=== PATIENT | female | born 1995 ===

== ENCOUNTER 2016-10-29 20:29 | Emergency (ER) | payer BC, OTHER ==
[2016-10-29 20:35] VITALS: BP 118/70; BMI 23.8
[2016-10-29 22:00] LABS: BILIRUBIN,URINE NEGATIVE (NEGATIVE); BLOOD/HEMOGLOBIN,URINE NEGATIVE (NEGATIVE); GLUCOSE, URINE NEGATIVE (NEGATIVE); KETONES,URINE NEGATIVE (NEGATIVE); LEUKOCYTE ESTERASE ,URINE NEGATIVE (NEGATIVE); NITRITES,URINE NEGATIVE (NEGATIVE); PROTEIN,URINE NEGATIVE (NEGATIVE); UROBILINOGEN,URINE NORMAL (NORMAL)
[2016-10-29 22:06] LABS: APPEARANCE,URINE CLEAR (CLEAR); BACTERIA,URINE 1+ /HPF (NEGATIVE); COLOR,URINE YELLOW (YELLOW); RBC,URINE NONE SEEN /HPF (NEGATIVE); SQUAMOUS EPITHELIAL CELL,UR RARE /HPF (NEGATIVE)
== END 2016-10-29 22:40 | disposition left against medical advice (07) ==
LOC: ER 20:51
DX: M54.89 Other dorsalgia (principal); Z3A.00 Weeks of gestation of pregnancy not specified
CPT/HCPCS: 36415; 81001; 84702; 99284

== ENCOUNTER 2020-07-29 02:43 | Observation (INO) ==
[2020-07-29 03:11] VITALS: BMI 24.1
[2020-07-29] MEDS ORDERED: NS 1000 ML 1,000 ML IV ONE ×2 (03:13→05:35)
[2020-07-29] MEDS ORDERED: ZOFRAN INJ 4 MG VIAL IVP ONE (03:13)
[2020-07-29] MEDS ORDERED: PEPCID 20 MG IV PREMIX* 20 MG/50 ML BAG IV STA (03:13)
[2020-07-29] MEDS ORDERED: MORPHINE SULFATE INJ 4 MG IVP ONE (03:18)
--- NOTE | 2020-07-29 03:28 | DR.GENAD ---
HPI Time Seen Time Seen by Provider: 07/29/20 03:10 PCP Primary Care Physician: zeina elam HPI Comment HPI Comment: PATIENT WITH A HISTORY OF CLEAR CELL SARCOMA DIAGNOSED IN 2012 COMPLAINS OF GENERALIZED ABDOMINAL PAIN X 1 WEEK. HAS AN EPISODE OF EMESIS AND HAS PERSISTENT NAUSEA, DENIES URINARY SYMPTOMS, DIARRHEA, FEVER. PATIENT IS SCHEDULED TO UNDERGO EXPERIMENTAL CHEMOTHERAPY AT [facility] IN [place]. Complaint/Symptoms Chief Complaint Doctors Comments: ABDOMINAL PAIN Chief Complaint:: PT STATED SHE HAS BEEN HAVING ABDOMINAL PAIN FOR ABOUT A WEEK THAT HAS WORSEN. SHE STATED TONIGHT SHE STARTED FEELING NAUSEATED. Self Treatment fo Chief Complaint: PT STATED SHE HAS BEEN TAKING TYLENOL Source History Provided: Patient Mode of Arrival Mode of Arrival: EMS Timing Onset of Chief Complaint: 07/29/20 PMH PMH Past Medical History: Yes Past Medical History Comment: CLEAR CELL SARCOMA Past Surgical History: Yes Surgical History: Past Surgical History Comment: AND RIGHT BELOW THE KNEE AMBUTATION Family History History of Family Medical Conditions: No Social History Alcohol Use: None Do you use any recreational Drugs:: No Lives With: Family Lives Where: Home Infectious screening In the last 2 months have you had wt loss of >10#?: NO Have you had fever, night sweats or hemotysis?: No Have you traveled outside the country in the last 6 months?: No Isolation: Standard ROS Review of Systems Constitutional: No Symptoms Reported Eyes: No Symptoms Reported ENTM: No Symptoms Reported Respiratoy: No Symptoms Reported Cardiovascular: No Symptoms Reported Gastrointestinal/Abdominal: No Symptoms Reported, See HPI, Nausea and Vomiting Genitourinary: No Symptoms Reported Neurological: See HPI and Headache Musculoskeletal: No Symptoms Reported Integumentary: No Symptoms Reported Hematologic/Lymphatic: No Symptoms Reported Endocrine: No Symptoms Reported Psychiatric: No Symptoms Reported All Other Systems: Reviewed and Negative PE Vital Signs Vitals: Temperature 99.4 F Pulse Rate [Left Brachial] 111 Pulse Rate 142 Respiratory Rate 20 Blood Pressure [Left Arm] 119/58 Blood Pressure 117/70 O2 Sat by Pulse Oximetry 98 General Limitations: No Limitations General Appearance: Alert and In No Apparent Distress Head Head Exam: Atraumatic Eyes Eye exam: Normal Appearance and PERRL ENT ENT Exam: Normal Exam and Normal Oropharynx External Ear Exam: Normal External Inspection Neck Neck Exam: Normal Inspection and Full ROM Respiratory Respiratory Exam: Normal Lung Sounds Bilat Cardiovascular Cardiovascular Exam: Regular Rate and Normal Rhythm Back Back Exam: Normal Inspection and Full ROM Neurologic Neurological Exam: Alert and Oriented X3 MDM Additional Information Findings: HGB-9.1, HCT-26.2 Differential Diagnosis Differential Diagnosis: ACUTE PANCREATITIS, INTERNAL HEMORRHAGE COURSE Treatment Treatment: ADMINISTERED IV NORMAL SALINE 1 LITER/HR, ZOFRAN 4MG, MORPHINE 4MG IV AND PEPCID 20MG IVPB, PATIENT TYPES AND CROSSED FOR 4 UNITS OF PRBC. PATIENT IS BEING TRANSFUSED 2 UNITS PACKED RED BLOOD CELLS, 1 UNIT OVER 1 HOUR EACH WITH BLOOD WARMER, WILL OBTAIN CBC AFTER 2ND UNIT TRANSFUSED, VITAL SIGNS BP 123/70 HAS REMAINED STABLE, TACHYCARDIA 136 IMPROVED TO PULSE 101 AFTER TRANSFUSION OF 1 UNIT PRBC Consultation Call Returned: 05:30 Consultation Comments: DISCUSSED WITH DR MARIEE AT [address] SCAN FINDINGS, PER FAMILY REQUEST CONSULTED [facility], VASCULAR SURGEON CAR DISTRI[employer]OR DR BENJAMIN AT 0545 STATES HAS NO BED AVAILABLE. AFTER CONSULTATION PER DR MARIEE, WILL ADMIT AND TRANSFUSE 2 UNITS AND FOLLOW SERIAL CBC. ROR Labs Reviewed Result Diagrams: 07/29/20 03:30 07/29/20 03:30 Laboratory: WBC 12.7 X10^3/uL (3.6-10.0) H 07/29/20 03:30 RBC 3.08 X10^6/uL (3.5-5.4) L 07/29/20 03:30 Hgb 9.1 g/dL (12.0-16.0) L 07/29/20 03:30 Hct 26.2 % (36.0-47.0) L 07/29/20 03:30 MCV 85.2 fL (80.0-100.0) 07/29/20 03:30 MCH 29.7 pg (27.0-34.0) 07/29/20 03:30 MCHC 34.8 g/dL (33.0-35.0) 07/29/20 03:30 RDW 12.2 % (11.6-16.5) 07/29/20 03:30 Plt Count 207 X10^3/uL (150.0-450.0) 07/29/20 03:30 MPV 8.9 fL (7.4-11.0) 07/29/20 03:30 Neut % (Auto) 84.4 % (42.0-75.0) H 07/29/20 03:30 Lymph % (Auto) 9.4 % (21.0-51.0) L 07/29/20 03:30 [place]man % (Auto) 5.6 % (0.0-13.0) 07/29/20 03:30 Eos % (Auto) 0.3 % (0.9-2.9) L 07/29/20 03:30 Baso % (Auto) 0.3 % (0.2-1.0) 07/29/20 03:30 Neut # (Auto) 10.7 x10^3/uL (2.2-4.8) H 07/29/20 03:30 Lymph # (Auto) 1.2 X10^3/uL (1.3-2.9) L 07/29/20 03:30 [place]man # (Auto) 0.7 x10^3/uL (0.3-0.8) 07/29/20 03:30 Eos # (Auto) 0.0 x10^3/uL (0.0-0.2) 07/29/20 03:30 Baso # (Auto) 0.0 X10^3/uL (0.0-0.1) 07/29/20 03:30 Absolute Nucleated RBC 0.0 /100WBC 07/29/20 03:30 PT 15.0 SECONDS (11.8-14.3) 07/29/20 03:30 INR Target Range - 07/29/20 03:30 INR 1.21 (0.8-1.3) 07/29/20 03:30 Sodium 134 mmol/L (136-145) L 07/29/20 03:30 Corrected Sodium 135 mmol/L (136-145) L 07/29/20 03:30 Potassium 3.8 mmol/L (3.5-5.1) 07/29/20 03:30 Chloride 100 mmol/L (98-107) 07/29/20 03:30 Carbon Dioxide 27.9 mmol/L (21-32) 07/29/20 03:30 BUN 9 mg/dL (7-18) 07/29/20 03:30 Creatinine 0.79 mg/dL (0.55-1.02) 07/29/20 03:30 Est GFR (MDRD) Af Amer > 60 (>60) 07/29/20 03:30 Est GFR (MDRD) Non-Af > 60 (>60) 07/29/20 03:30 Glucose 122 mg/dL (65-99) H 07/29/20 03:30 Calcium 8.7 mg/dL (8.5-10.1) 07/29/20 03:30 Corrected Calcium 9.3 mg/dL (8.5-10.1) 07/29/20 03:30 Total Bilirubin 0.20 mg/dL (0.2-1.0) 07/29/20 03:30 AST 42 Units/L (15-37) H 07/29/20 03:30 ALT 34 Units/L (12-78) 07/29/20 03:30 Alkaline Phosphatase 103 Units/L (46-116) 07/29/20 03:30 Total Protein 7.1 g/dL (6.4-8.2) 07/29/20 03:30 Albumin 3.3 g/dL (3.4-5.0) L 07/29/20 03:30 Globulin 3.8 g/dL (2.5-4.5) 07/29/20 03:30 Albumin/Globulin Ratio 0.9 Ratio (1.1-2.1) L 07/29/20 03:30 Amylase 77 Units/L (25-115) 07/29/20 03:30 Lipase 1038 Units/L (73-393) H 07/29/20 03:30 HCG, Qual Negative <10 mIU/mL 07/29/20 03:30 SARS CoV-2 RNA Rapid MARC Negative (NEGATIVE) 07/29/20 06:24 Blood Type O POSITIVE 07/29/20 05:15 Antibody Screen Negative 07/29/20 05:15 Crossmatch See Detail 07/29/20 05:15 XRAY XRAY Interpreted by: Radiologist (ABDOMINAL PELVIC CT WITH IV CONTRAST, THERE IS A LARGE ACTIVE HEMMORRHAGE SEEN SURROUNDING THE RIGHT KIDNEY IN THE REGION OF THE RIGHT ADRENAL GLAND WITH EXTENSION TOWARD THE LOWER PERITONEUM AND INTO RIGHT PELVIS. THE FLUID IS HIGHLY WORRISOME FOR ACTIVE IN THE PERITONEAL CA VITY) Opioid Opioid Risk Tool Age (Titus box if 16-45): Yes History of Preadolescent Sexual Abuse: No Total: 1 Total Score Risk Category: Low Risk Copyright: Mehul REYES predicting aberrant behaviors Diagnosis Discharge Problem: Retroperitoneal bleeding Instructions Forms: Precautions for COVID19 Patient Portal Social Distancing
[2020-07-29] MEDS ORDERED: NS 1000 ML 1,000 ML ONE ×3 (03:32→06:39)
[2020-07-29] MEDS ORDERED: ZOFRAN INJ 4 MG VIAL ONE (03:32)
[2020-07-29] MEDS ORDERED: MORPHINE SULFATE INJ 4 MG ONE (03:32)
[2020-07-29] MEDS ORDERED: PEPCID 20 MG IV PREMIX* 20 MG/50 ML BAG IV ONE (03:33)
[2020-07-29 03:39] LABS: BASOPHILS % (AUTO) 0.3 % (0.2-1.0); EOSINOPHILS % (AUTO) 0.3 % (0.9-2.9); HEMATOCRIT 26.2 % (36.0-47.0); HEMOGLOBIN 9.1 g/dL (12.0-16.0); LYMPHOCYTES # (AUTO) 1.2 X10^3/uL (1.3-2.9); LYMPHOCYTES % (AUTO) 9.4 % (21.0-51.0); MEAN CORPUSCULAR HEMOGLOBIN 29.7 pg (27.0-34.0); MEAN CORPUSCULAR HGB CONC 34.8 g/dL (33.0-35.0); MEAN CORPUSCULAR VOLUME 85.2 fL (80.0-100.0); MEAN PLATELET VOLUME 8.9 fL (7.4-11.0); MONOCYTES # (AUTO) 0.7 x10^3/uL (0.3-0.8); MONOCYTES % (AUTO) 5.6 % (0.0-13.0); NEUTROPHILS # (AUTO) 10.7 x10^3/uL (2.2-4.8); NEUTROPHILS % (AUTO) 84.4 % (42.0-75.0); PLATELET COUNT 207 X10^3/uL (150.0-450.0); RED BLOOD COUNT 3.08 X10^6/uL (3.5-5.4); RED CELL DISTRIBUTION WIDTH 12.2 % (11.6-16.5); WHITE BLOOD COUNT 12.7 X10^3/uL (3.6-10.0)
[2020-07-29 03:55] LABS: SERUM PREGNANCY TEST, QUAL NEGATIVE <10 mIU/mL
[2020-07-29 04:00] LABS: ALANINE AMINOTRANSFERASE 34 Units/L (12-78); ALBUMIN 3.3 g/dL (3.4-5.0); ALKALINE PHOSPHATASE 103 Units/L (46-116); AMYLASE 77 Units/L (25-115); ASPARTATE AMINO TRANSFERASE 42 Units/L (15-37); BLOOD UREA NITROGEN 9 mg/dL (7-18); CALCIUM 8.7 mg/dL (8.5-10.1); CARBON DIOXIDE 27.9 mmol/L (21-32); CHLORIDE 100 mmol/L (98-107); COR CA(FOR HYPOALB) 9.3 mg/dL (8.5-10.1); COR NA(FOR HYPERGLY) 135 mmol/L (136-145); CREATININE 0.79 mg/dL (0.55-1.02); LIPASE 1038 Units/L (73-393); SODIUM 134 mmol/L (136-145); TOTAL PROTEIN 7.1 g/dL (6.4-8.2); eGFR NON BLACK RACES > 60 (>60)
[2020-07-29] MEDS ORDERED: NS 1000 ML 1,000 ML IV SCH (05:00)
--- NOTE | 2020-07-29 05:14 | CT ---
STUDY: CT ABDOMEN AND PELVIS WITH IV CONTRASTCOMPARISON: NoneTECHNIQUE: Axial images were acquired of the abdomen and pelvis with IV contrast. Sagittal and coronal reformatted images were provided. All images were reviewed in a variety of windows and levels.RADIATION REDUCTION TECHNIQUE: Automated exposure control, adjustment of the mA and/or kV according to patient size, or iterative reconstruction techniques were used.HISTORY: PT C/O ABD PAINFINDINGS:The visualized lower lung zones are clear. The heart size is within normal limits. There is no evidence of a pericardial effusion.The liver is unremarkable. The gallbladder, spleen is unremarkable. There are lesions seen in the body of the pancreas of which the largest measures 20 mm in diameter and has a heterogeneous septated internal architecture. The uncinate process and the pancreatic head is being shifted due to mass effect toward the gallbladder. Large active hemorrhage is seen surrounding the right kidney and in the region of the right adrenal gland with extension toward the lower peritoneum and into the pelvis. This fluid is highly worrisome for active hemorrhage in the peritoneal cavity and measures blood density.The left kidney contains a cyst. The left adrenal gland is unremarkable. Please note that the contrast seen in the kidneys and in the aorta is hyperdense which is worrisome for the possibility of hypovolemic shock. In addition, there is flattening of the IVC which is worrisome for hypovolemic shock.The uterus is grossly unremarkable. The left adnexal is grossly unremarkable. The right adnexal is not clearly visualized. Soft tissue enhancing mass is seen in the right gluteus muscle measuring 23 x 17 mm and along the left paraspinous muscle measuring 51 x 34 mm. This is worrisome for malignancy. The visualized portions of the colon appears unremarkable. Please note that the ascending colon is being displaced towards the mid abdomen due to the active hemorrhage in the peritoneal cavity. The loops of small bowel appear grossly unremarkable but are poorly discernible on this examination.The visualized bones demonstrate degenerative changes.IMPRESSION:- Large amount of fluid is seen in the right freida abdomen predominantly surrounding the right kidney and the right adrenal gland. The source of this hemorrhage is not clear but may be arising from the system or possibly retroperitoneal. The fluid does measure blood density and is highly worrisome for active hemorrhage. In addition, the IV contrast in the exam is very dense and the IVC is flattened. These CT imaging features are worrisome for hypovolemic shock.- There are soft tissue lesions seen within the pancreas, right gluteus muscle, and left paraspinous muscle. This is worrisome for metastatic disease.COMMUNICATIONS: These findings were discussed with Dr. Alberto of the [facility] emergency Department at 5:05 a.m. Eastern standard time on 07/29/2020.Electronically signed by: Angel Blackwood (Jul 29, 2020 05:12:45)
[2020-07-29] MEDS ORDERED: NS 250 ML IV 250 ML IV ONE (06:36)
[2020-07-29] MEDS ORDERED: MORPHINE SULFATE INJ 2 MG INJ IVP PRN (07:47)
[2020-07-29] MEDS ORDERED: DILAUDID INJ IVP PRN (10:53)
[2020-07-29] MEDS: ZOFRAN INJ 4 MG VIAL IVP PRN ×2 (12:04→18:43)
[2020-07-29 12:10] LABS: BASOPHILS % (AUTO) 0.4 % (0.2-1.0); EOSINOPHILS % (AUTO) 0.2 % (0.9-2.9); HEMATOCRIT 25.6 % (36.0-47.0); HEMOGLOBIN 8.8 g/dL (12.0-16.0); LYMPHOCYTES # (AUTO) 1.3 X10^3/uL (1.3-2.9); LYMPHOCYTES % (AUTO) 15.9 % (21.0-51.0); MEAN CORPUSCULAR HEMOGLOBIN 29.6 pg (27.0-34.0); MEAN CORPUSCULAR HGB CONC 34.5 g/dL (33.0-35.0); MEAN CORPUSCULAR VOLUME 85.9 fL (80.0-100.0); MONOCYTES # (AUTO) 0.6 x10^3/uL (0.3-0.8); MONOCYTES % (AUTO) 6.7 % (0.0-13.0); NEUTROPHILS # (AUTO) 6.4 x10^3/uL (2.2-4.8); NEUTROPHILS % (AUTO) 76.8 % (42.0-75.0); PLATELET COUNT 135 X10^3/uL (150.0-450.0); RED BLOOD COUNT 2.98 X10^6/uL (3.5-5.4); RED CELL DISTRIBUTION WIDTH 12.8 % (11.6-16.5); WHITE BLOOD COUNT 8.3 X10^3/uL (3.6-10.0)
[2020-07-29 14:24] LABS: BILIRUBIN,URINE NEGATIVE (NEGATIVE); BLOOD/HEMOGLOBIN,URINE NEGATIVE (NEGATIVE); GLUCOSE, URINE NEGATIVE (NEGATIVE); KETONES,URINE 3+ (NEGATIVE); LEUKOCYTE ESTERASE ,URINE NEGATIVE (NEGATIVE); NITRITES,URINE NEGATIVE (NEGATIVE); PROTEIN,URINE 1+ (NEGATIVE); UROBILINOGEN,URINE NORMAL (NORMAL)
[2020-07-29 14:34] LABS: APPEARANCE,URINE CLEAR (CLEAR); BACTERIA,URINE NEGATIVE /HPF (NEGATIVE); COLOR,URINE DARK YELLOW (YELLOW); MUCUS,URINE FEW /HPF (NEGATIVE); RBC,URINE 0-2 /HPF (0-3); SQUAMOUS EPITHELIAL CELL,UR RARE /HPF (NEGATIVE)
[2020-07-29] MEDS: DILAUDID INJ IVP PRN ×3 (15:19→23:45)
[2020-07-29 16:12] LABS: HEMATOCRIT 23.5 % (36.0-47.0); HEMOGLOBIN 8.2 g/dL (12.0-16.0)
[2020-07-30] MEDS: ZOFRAN INJ 4 MG VIAL IVP PRN ×2 (04:00→09:10)
[2020-07-30] MEDS: DILAUDID INJ IVP PRN ×3 (04:00→12:17)
[2020-07-30 07:38] LABS: BASOPHILS % (AUTO) 0.6 % (0.2-1.0); EOSINOPHILS # (AUTO) 0.1 x10^3/uL (0.0-0.2); HEMOGLOBIN 9.3 g/dL (12.0-16.0); LYMPHOCYTES # (AUTO) 1.3 X10^3/uL (1.3-2.9); LYMPHOCYTES % (AUTO) 18.5 % (21.0-51.0); MEAN CORPUSCULAR HEMOGLOBIN 30.3 pg (27.0-34.0); MEAN CORPUSCULAR HGB CONC 34.7 g/dL (33.0-35.0); MEAN CORPUSCULAR VOLUME 87.3 fL (80.0-100.0); MEAN PLATELET VOLUME 8.6 fL (7.4-11.0); MONOCYTES # (AUTO) 0.4 x10^3/uL (0.3-0.8); MONOCYTES % (AUTO) 5.8 % (0.0-13.0); NEUTROPHILS % (AUTO) 73.1 % (42.0-75.0); PLATELET COUNT 124 X10^3/uL (150.0-450.0); RED BLOOD COUNT 3.09 X10^6/uL (3.5-5.4); RED CELL DISTRIBUTION WIDTH 13.2 % (11.6-16.5); WHITE BLOOD COUNT 6.9 X10^3/uL (3.6-10.0)
[2020-07-30 07:47] LABS: ALANINE AMINOTRANSFERASE 18 Units/L (12-78); ALBUMIN 2.5 g/dL (3.4-5.0); ALKALINE PHOSPHATASE 100 Units/L (46-116); AMYLASE 52 Units/L (25-115); ASPARTATE AMINO TRANSFERASE 27 Units/L (15-37); BLOOD UREA NITROGEN 4 mg/dL (7-18); CALCIUM 8.1 mg/dL (8.5-10.1); CARBON DIOXIDE 24.7 mmol/L (21-32); CHLORIDE 104 mmol/L (98-107); COR CA(FOR HYPOALB) 9.3 mg/dL (8.5-10.1); CREATININE 0.58 mg/dL (0.55-1.02); LIPASE 605 Units/L (73-393); SODIUM 137 mmol/L (136-145); TOTAL PROTEIN 5.8 g/dL (6.4-8.2); eGFR NON BLACK RACES > 60 (>60)
--- NOTE | 2020-07-30 09:53 | DR.PROGNOT ---
Hospital Progress Notes - Progress Note for Day of: Progress Note Date: 07/30/20 - Chief Complaint Chief Complaint: c/o back and abdominal pain , mild nausea. WBC 6.9.. Hgb 9.3, plt 124.. Lipase 605. stable VS , afebrile - Past Medical Family Social History Past Med/Fam/Surg Hx: No changes since H&P Allergies: Allergies No Known Drug Allergies Allergy (Verified 04/06/20 01:42) - Review Of Systems ROS: No change since H&P - Vital Signs Vital Signs: Temperature 98.6 F Pulse Rate [Left Brachial] 92 Pulse Rate 142 Respiratory Rate 20 Blood Pressure [Left Arm] 117/65 Blood Pressure 117/70 O2 Sat by Pulse Oximetry 100 - Physical Exam Oriented: Normal Eyes: Normal Ear: Normal Nose: Normal Respiratory: Normal Cardiovascular: Normal : Normal GI:Auscultation: Normal GI:Palpation: Other (soft abdomen . flat BS+) Skin: Normal Speech Pattern: Clear, Appropriate - Laboratory and Diagnostics Result Diagrams: 07/30/20 07:24 07/30/20 07:24 Labs: Laboratory WBC 6.9 X10^3/uL (3.6-10.0) 07/30/20 07:24 RBC 3.09 X10^6/uL (3.5-5.4) L 07/30/20 07:24 Hgb 9.3 g/dL (12.0-16.0) L 07/30/20 07:24 Hct 27.0 % (36.0-47.0) L 07/30/20 07:24 MCV 87.3 fL (80.0-100.0) 07/30/20 07:24 MCH 30.3 pg (27.0-34.0) 07/30/20 07:24 MCHC 34.7 g/dL (33.0-35.0) 07/30/20 07:24 RDW 13.2 % (11.6-16.5) 07/30/20 07:24 Plt Count 124 X10^3/uL (150.0-450.0) L 07/30/20 07:24 MPV 8.6 fL (7.4-11.0) 07/30/20 07:24 Neut % (Auto) 73.1 % (42.0-75.0) 07/30/20 07:24 Lymph % (Auto) 18.5 % (21.0-51.0) L 07/30/20 07:24 [place] % (Auto) 5.8 % (0.0-13.0) 07/30/20 07:24 Eos % (Auto) 2.0 % (0.9-2.9) 07/30/20 07:24 Baso % (Auto) 0.6 % (0.2-1.0) 07/30/20 07:24 Neut # (Auto) 5.0 x10^3/uL (2.2-4.8) H 07/30/20 07:24 Lymph # (Auto) 1.3 X10^3/uL (1.3-2.9) 07/30/20 07:24 [place] # (Auto) 0.4 x10^3/uL (0.3-0.8) 07/30/20 07:24 Eos # (Auto) 0.1 x10^3/uL (0.0-0.2) 07/30/20 07:24 Baso # (Auto) 0.0 X10^3/uL (0.0-0.1) 07/30/20 07:24 Absolute Nucleated RBC 0.0 /100WBC 07/30/20 07:24 PT 15.0 SECONDS (11.8-14.3) 07/29/20 03:30 INR Target Range - 07/29/20 03:30 INR 1.21 (0.8-1.3) 07/29/20 03:30 Sodium 137 mmol/L (136-145) 07/30/20 07:24 Corrected Sodium TNP 07/30/20 07:24 Potassium 3.9 mmol/L (3.5-5.1) 07/30/20 07:24 Chloride 104 mmol/L (98-107) 07/30/20 07:24 Carbon Dioxide 24.7 mmol/L (21-32) 07/30/20 07:24 BUN 4 mg/dL (7-18) L 07/30/20 07:24 Creatinine 0.58 mg/dL (0.55-1.02) 07/30/20 07:24 Est GFR (MDRD) Af Amer > 60 (>60) 07/30/20 07:24 Est GFR (MDRD) Non-Af > 60 (>60) 07/30/20 07:24 Glucose 83 mg/dL (65-99) 07/30/20 07:24 Calcium 8.1 mg/dL (8.5-10.1) L 07/30/20 07:24 Corrected Calcium 9.3 mg/dL (8.5-10.1) 07/30/20 07:24 Total Bilirubin 1.20 mg/dL (0.2-1.0) H 07/30/20 07:24 AST 27 Units/L (15-37) 07/30/20 07:24 ALT 18 Units/L (12-78) 07/30/20 07:24 Alkaline Phosphatase 100 Units/L (46-116) 07/30/20 07:24 Total Protein 5.8 g/dL (6.4-8.2) L 07/30/20 07:24 Albumin 2.5 g/dL (3.4-5.0) L 07/30/20 07:24 Globulin 3.3 g/dL (2.5-4.5) 07/30/20 07:24 Albumin/Globulin Ratio 0.8 Ratio (1.1-2.1) L 07/30/20 07:24 Amylase 52 Units/L (25-115) 07/30/20 07:24 Lipase 605 Units/L (73-393) H 07/30/20 07:24 HCG, Qual Negative <10 mIU/mL 07/29/20 03:30 Specimen Type Clean catch urine 07/29/20 14:10 Urine Color Dark yellow (YELLOW) 07/29/20 14:10 Urine Appearance Clear (CLEAR) 07/29/20 14:10 Urine pH 5.0 (5.0 - 8.0) 07/29/20 14:10 Ur Specific [place] 1.020 (1.000-1.030) 07/29/20 14:10 Urine Protein 1+ (NEGATIVE) 07/29/20 14:10 Urine Glucose (UA) Negative (NEGATIVE) 07/29/20 14:10 Urine Ketones 3+ (NEGATIVE) 07/29/20 14:10 Urine Occult Blood Negative (NEGATIVE) 07/29/20 14:10 Urine Nitrite Negative (NEGATIVE) 07/29/20 14:10 Urine Bilirubin Negative (NEGATIVE) 07/29/20 14:10 Urine Urobilinogen Normal (NORMAL) 07/29/20 14:10 Ur Leukocyte Esterase Negative (NEGATIVE) 07/29/20 14:10 Urine RBC 0-2 /HPF (0-3) 07/29/20 14:10 Urine WBC 0-2 /HPF (0-5) 07/29/20 14:10 Ur Squamous Epith Cells Rare /HPF (NEGATIVE) 07/29/20 14:10 Urine Bacteria Negative /HPF (NEGATIVE) 07/29/20 14:10 Urine Mucus Few /HPF (NEGATIVE) 07/29/20 14:10 Ur Culture Indicated? No/not indicated 07/29/20 14:10 SARS CoV-2 RNA Rapid MARC Negative (NEGATIVE) 07/29/20 06:24 Blood Type O POSITIVE 07/29/20 05:15 Antibody Screen Negative 07/29/20 05:15 Crossmatch See Detail 07/29/20 05:15 - Assessment and Plan 1: retro peritoneal bleeding . anemia 2nd to bleeding . metasteatic sarcoma . s/p Rt BKA. elevated Lipase . being transferred to [place] - Problem Patient Problems: Patient Problems Retroperitoneal bleeding (Acute) R58
[2020-07-30 13:03] VITALS: BP 109/61
== END 2020-07-30 12:45 | disposition short-term general hospital (02) ==
LOC: ER 02:44 → OBS 07:47 → INTOOBSV 07:47 → MED/SURG 08:02
PROVIDERS: ADMIT Surgery; ATTEND Surgery